=== PATIENT | male | born 1980 | race Caucasian/White ===

== ENCOUNTER 2017-01-06 10:18 | Emergency (ER) | payer SELFPAY ==
[2017-01-06 11:03] LABS: Eosinophils % (Auto) 3.9 % (0.0-4.3); Hematocrit 39.8 % (35.5-45.6); Hemoglobin 13.4 gm/dl (11.8-15.2); Mean Corpuscular HGB Conc 34 % (32-34); Mean Corpuscular Hemoglobin 30 pg (28-32); Mean Corpuscular Volume 89 fl (84-94); Platelet Count 237 K/mm3 (140-440); Red Blood Count 4.46 M/mm3 (3.65-5.03); Red Cell Distribution Width 13.8 % (13.2-15.2); White Blood Count 3.1 K/mm3 (4.5-11.0)
[2017-01-06 11:17] LABS: Anion Gap 20 mmol/L; Blood Urea Nitrogen 21 mg/dL (9-20); Calcium 9.6 mg/dL (8.4-10.2); Carbon Dioxide 22 mmol/L (22-30); Chloride 100.5 mmol/L (98-107); Glucose 137 mg/dL (75-100); Potassium 3.9 mmol/L (3.6-5.0); Sodium 139 mmol/L (137-145)
--- NOTE | 2017-01-06 12:46 | XRay Report ---
CHEST TWO VIEWS: 01/06/17 10:18:00 CLINICAL: Chest pain. COMPARISON: 03/29/13 FINDINGS: Normal heart and pulmonary vasculature. The lungs are normally expanded and clear.The bones and soft tissues are unremarkable. IMPRESSION: Normal chest.
--- NOTE | 2017-01-06 19:37 | Emergency Department Report ---
ED General Adult HPI - General Chief complaint: Chest Pain Stated complaint: CHEST PAIN,HTN Time Seen by Provider: 01/06/17 19:09 Source: patient, RN notes reviewed, old records reviewed Mode of arrival: Ambulatory Limitations: No Limitations - History of Present Illness Initial comments: This is a 36-year-old male. He is previously unknown to me. He does not have a primary care doctor. Patient may have a past medical history of hypertension and elevated "bad cholesterol." The patient reports that he was recently seen at an urgent care center, found to have a blood pressure with systolic in the 160s, and was started on amlodipine, and gemfibrozil. The patient presents to the ER with resolved dizziness and chest tightness. The dizziness started at 9: 00 in the morning. It is described as a sensation of room spinning and lightheadedness. It has since resolved. There is no leg pain. There is no leg swelling. No recent trips greater than 4 hours. No recent hospital admissions. There is no tinnitus. There is no change in auditory acuity. There is no posterior regular pain. The dizziness lasted from 9 to 11:00, and was intermittent, and had no exacerbating or relieving factors. The patient also describes central chest "pinching." This lasted from 9 AM to 11 AM. It was intermittent. It was not associated with nausea, vomiting, diaphoresis, shortness of breath. 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 The patient has no symptoms at this time. -: Gradual Location: chest Consistency: now resolved Improves with: none Worsens with: none Associated Symptoms: chest pain. denies: cough, diaphoresis, fever/chills, headaches, loss of appetite, malaise, nausea/vomiting, rash, shortness of breath , syncope, weakness - Related Data Previous Rx's Medication Instructions Recorded Last Taken Type Ibuprofen [Motrin] 600 mg PO Q8H PRN #30 tablet 03/29/13 Unknown Rx LORazepam [Ativan] 0.5 mg PO QHS #15 tab 03/29/13 Unknown Rx Meclizine [Antivert] 25 mg PO TID PRN #15 tablet 01/06/17 Unknown Rx Allergies Allergy/AdvReac Type Severity Reaction Status Date / Time No Known Allergies Allergy Unverified 03/29/13 09:01 ED Review of Systems ROS: Stated complaint: CHEST PAIN,HTN Other details as noted in HPI Constitutional: denies: fever Eyes: denies: vision change ENT: denies: ear pain, throat pain, dental pain, hearing loss, epistaxis, congestion Respiratory: denies: cough Cardiovascular: chest pain Gastrointestinal: denies: nausea, vomiting Genitourinary: as per HPI Musculoskeletal: as per HPI Skin: as per HPI Neurological: as per HPI, vertigo. denies: weakness, numbness, paresthesias, confusion Psychiatric: as per HPI ED Past Medical Hx - Past Medical History Previous Medical History?: Yes Hx Hypertension: Yes Additional medical history: high cholesterol - Surgical History Past Surgical History?: Yes Additional Surgical History: right ankle surgery - Social History Smoking Status: Never Smoker Substance Use Type: None - Medications Home Medications: Home Medications Medication Instructions Recorded Confirmed Last Taken Type Ibuprofen [Motrin] 600 mg PO Q8H PRN #30 tablet 03/29/13 Unknown Rx LORazepam [Ativan] 0.5 mg PO QHS #15 tab 03/29/13 Unknown Rx Meclizine [Antivert] 25 mg PO TID PRN #15 tablet 01/06/17 Unknown Rx ED Physical Exam - General Limitations: No Limitations General appearance: alert, in no apparent distress - Head Head exam: Present: atraumatic, normocephalic - Eye Eye exam: Present: normal appearance (patient has a chronically superiorly deviated left eye, which is not new, worsening or different), PERRL, EOMI, other (visual acuity intact to finger counting, color perception, reading at a close distance). Absent: nystagmus - ENT ENT exam: Present: normal exam, normal orophraynx, mucous membranes moist, normal external ear exam - Neck Neck exam: Present: normal inspection, full ROM. Absent: tenderness, meningismus - Respiratory Respiratory exam: Present: normal lung sounds bilaterally. Absent: respiratory distress, wheezes, rales, rhonchi, stridor, chest wall tenderness, accessory muscle use, decreased breath sounds, prolonged expiratory - Cardiovascular Cardiovascular Exam: Present: regular rate, normal rhythm, normal heart sounds. Absent: bradycardia, tachycardia, irregular rhythm, systolic murmur, diastolic murmur, rubs, gallop - GI/Abdominal GI/Abdominal exam: Present: soft, normal bowel sounds. Absent: distended, tenderness, guarding, rebound, rigid, pulsatile mass - Rectal Rectal exam: Present: deferred - Extremities Exam Extremities exam: Present: normal inspection, full ROM, normal capillary refill. Absent: tenderness, pedal edema, joint swelling, calf tenderness - Back Exam Back exam: Present: normal inspection, full ROM. Absent: tenderness, CVA tenderness (R), CVA tenderness (L), muscle spasm, paraspinal tenderness, vertebral tenderness - Neurological Exam Neurological exam: Present: alert, oriented X3, normal gait (normal gait. Normal tandem gait. Normal tiet-of-teys. No pronator drift. Normal finger to nose. Negative Romberg examination), other (Extraocular movements intact. Tongue midline. No facial droop. Facial sensation intact to light touch in the V1, V2, V3 distribution bilaterally. 5 and 5 strength in 4 extremities.. Sensation is intact to light touch in 4 extremities.). Absent: motor sensory deficit - Psychiatric Psychiatric exam: Present: anxious - Skin Skin exam: Present: warm, dry, intact, normal color. Absent: rash ED Course Vital Signs 01/06/17 01/06/17 01/06/17 10:27 15:16 16:31 Temperature 98.7 F Pulse Rate 102 H 90 92 H Respiratory 20 18 14 Rate Blood Pressure 152/98 Blood Pressure 148/93 [Right] O2 Sat by Pulse 100 99 99 Oximetry 01/06/17 01/06/17 01/06/17 16:41 16:43 17:00 Temperature 98.4 F Pulse Rate 94 H 91 H Respiratory 17 9 L Rate Blood Pressure 147/82 126/82 Blood Pressure [Right] O2 Sat by Pulse 96 97 Oximetry 01/06/17 01/06/17 01/06/17 17:31 18:00 18:31 Temperature Pulse Rate 89 86 89 Respiratory 14 18 18 Rate Blood Pressure 147/82 130/80 130/80 Blood Pressure [Right] O2 Sat by Pulse 95 97 97 Oximetry 01/06/17 01/06/17 18:36 19:00 Temperature Pulse Rate 86 Respiratory 18 13 Rate Blood Pressure 127/81 Blood Pressure [Right] O2 Sat by Pulse 97 98 Oximetry ED Medical Decision Making - Lab Data Result diagrams: 01/06/17 10:41 01/06/17 10:41 Vital Signs 01/06/17 01/06/17 01/06/17 10:27 15:16 16:31 Temperature 98.7 F Pulse Rate 102 H 90 92 H Respiratory 20 18 14 Rate Blood Pressure 152/98 Blood Pressure 148/93 [Right] O2 Sat by Pulse 100 99 99 Oximetry 01/06/17 01/06/17 01/06/17 16:41 16:43 17:00 Temperature 98.4 F Pulse Rate 94 H 91 H Respiratory 17 9 L Rate Blood Pressure 147/82 126/82 Blood Pressure [Right] O2 Sat by Pulse 96 97 Oximetry 01/06/17 01/06/17 01/06/17 17:31 18:00 18:36 Temperature Pulse Rate 89 86 Respiratory 14 18 18 Rate Blood Pressure 147/82 130/80 Blood Pressure [Right] O2 Sat by Pulse 95 97 97 Oximetry Lab Results 01/06/17 01/06/17 01/06/17 Range/Units 10:41 10:41 16:24 WBC 3.1 L (4.5-11.0) K/mm3 RBC 4.46 (3.65-5.03) M/mm3 Hgb 13.4 (11.8-15.2) gm/dl Hct 39.8 (35.5-45.6) % MCV 89 (84-94) fl MCH 30 (28-32) pg MCHC 34 (32-34) % RDW 13.8 (13.2-15.2) % Plt Count 237 (140-440) K/mm3 Lymph % (Auto) 35.8 H (13.4-35.0) % [place] % (Auto) 8.4 H (0.0-7.3) % Eos % (Auto) 3.9 (0.0-4.3) % Baso % (Auto) 1.0 (0.0-1.8) % Lymph # 1.1 L (1.2-5.4) K/mm3 [place] # 0.3 (0.0-0.8) K/mm3 Eos # 0.1 (0.0-0.4) K/mm3 Baso # 0.0 (0.0-0.1) K/mm3 Seg Neutrophils % 50.9 (40.0-70.0) % Seg Neutrophils # 1.6 L (1.8-7.7) K/mm3 Sodium 139 (137-145) mmol/L Potassium 3.9 (3.6-5.0) mmol/L Chloride 100.5 (98-107) mmol/L Carbon Dioxide 22 (22-30) mmol/L Anion Gap 20 mmol/L BUN 21 H (9-20) mg/dL Creatinine 0.6 L (0.8-1.5) mg/dL Estimated GFR > 60 ml/min BUN/Creatinine Ratio 35.00 % Glucose 137 H (75-100) mg/dL Calcium 9.6 (8.4-10.2) mg/dL Troponin T < 0.010 < 0.010 (0.00-0.029) ng/mL - EKG Data -: EKG Interpreted by Sd EKG shows normal: sinus rhythm Rate: tachycardia - EKG Data Interpretation: unchanged when compared t 01/06/17 19:37 sinus tachycardia, 102 bpm, normal intervals, normal axis, not morphologically consistent with STEMI, appears unchanged from prior EKG from 06/2015. - Radiology Data Radiology results: report reviewed, image reviewed - Medical Decision Making Differential diagnosis: Medication side effect, anxiety, acute coronary syndrome , pneumonia, peripheral vertigo Assessment and plan: 36-year-old male with nonspecific chest tightness, and resolved lightheadedness. He is afebrile with reassuring vital signs, walks with a steady gait, has a GCS of 15, with an NIH score is 0. There are no pulmonary embolus or DVT risk factors, he is low-risk by well's criteria, he is low risk by heart score, and low risk by KATHI score. Extensive discussion had with patient and family. They understand the patient is at low risk for major adverse cardiac event. Patient prefers to discontinue his prescribed medications and to follow up with outpatient primary care or cardiology. He'll be referred to these practitioners. In addition, the patient will be prescribed as needed meclizine for probable peripheral vertigo. There is no postauricular tenderness, redness or ocular discharge, therefore I think mastoiditis is very unlikely. Furthermore, given the young age, unremarkable neurologic examination, I don't believe the patient requires advanced imaging at this time. Critical care attestation.: If time is entered above; I have spent that time in minutes in the direct care of this critically ill patient, excluding procedure time. ED Disposition Clinical Impression: Light-headedness Disposition: DC-01 TO HOME OR SELFCARE Is pt being admited?: No Does the pt Need Aspirin: No Condition: Stable Instructions: Vertigo (ED), Near Syncope (ED) Additional Instructions: Follow up within the next 2 weeks with the listed primary care physician or either of the listed cardiology specialists. Symptoms may be coming as a medication side effect, although they also be coming from peripheral vertigo. Therefore, he may continue your current outpatient medications, or if he preferred to hold him until seen by her primary care physician or care specialist this would also be reasonable. Please follow up as directed. Return to the ER right away with new pain, worsened pain, migration of pain, weakness, numbness, confusion, change in mental status, projectile vomiting, inability to tolerate liquid feeds Prescriptions: Meclizine [Antivert] 25 mg PO TID PRN #15 tablet PRN Reason: Vertigo Referrals: PRIMARY CAREMD [Primary Care Provider] - 3-5 Days JAMES FULLER MD [Staff Physician] - 3-5 Days CAREY LAURA MD [Staff Physician] - 3-5 Days EMIL HELMS MD [Staff Physician] - 3-5 Days Forms: Work/School Release Form(ED)
[2017-01-06 19:51] VITALS: BP 127/81
== END 2017-01-06 19:45 | disposition home or self-care (01) ==
LOC: ED 10:18
DX: R42 Dizziness and giddiness (principal); R07.89 Other chest pain; I10 Essential (primary) hypertension; E78.00 Pure hypercholesterolemia, unspecified
CPT/HCPCS: 36415; 71020; 80048; 84484; 85025; 93005; 93010; 99284